=== PATIENT | male | born 1955 | race Caucasian/White ===

== ENCOUNTER 2017-03-22 12:40 | Emergency (ER) | payer BC, OTHER ==
[2017-03-22] MEDS ORDERED: predniSONE 20 MG Tab PO ONE (12:59)
--- NOTE | 2017-03-22 12:59 | EDM.PDOC ---
ED HPI GENERAL MEDICAL PROBLEM - General Chief Complaint: Bite:Animal, Insect Stated Complaint: STUNG BY A BEE Time Seen by Provider: 03/22/17 12:51 - History of Present Illness INITIAL COMMENTS - FREE TEXT/NARRATIVE: HISTORY AND PHYSICAL: History of present illness: Patient is 61-year-old white male presents status post bee sting to his left neck patient has history of significant allergies took an EpiPen and Benadryl prior to arrival is asymptomatic upon arrival. There is no shortness of breath dizziness lip swelling or other concern Review of systems: As per history of present illness and below otherwise all systems reviewed and negative. Past medical history: As per history of present illness and as reviewed below otherwise noncontributory. Surgical history: As per history of present illness and as reviewed below otherwise noncontributory. Social history: No reported history of drug or alcohol abuse. Family history: As per history of present illness and as reviewed below otherwise noncontributory. Physical exam: HEENT: Atraumatic, normocephalic, pupils reactive, negative for conjunctival pallor or scleral icterus, mucous membranes moist, throat clear, neck supple, nontender, trachea midline. Lungs: Clear to auscultation, breath sounds equal bilaterally, chest nontender. Heart: S1S2, regular, negative for clicks, rubs, or JVD. Abdomen: Soft, nondistended, nontender. Negative for masses or hepatosplenomegaly. Negative for costovertebral tenderness. Pelvis: Stable nontender. Genitourinary: Deferred. Rectal: Deferred. Extremities: Atraumatic, negative for cords or calf pain. Neurovascular unremarkable. Neuro: Awake, alert, oriented. Cranial nerves II through XII unremarkable. Cerebellum unremarkable. Motor and sensory unremarkable throughout. Exam nonfocal. Diagnostics: None Therapeutics: Prednisone 60 mg by mouth Impression: #1 observation status post insect bite #2 history of significant allergy to bees Definitive disposition and diagnosis as appropriate pending reevaluation and review of above. - Related Data Allergies Allergy/AdvReac Type Severity Reaction Status Date / Time bee sting Allergy Shortness Uncoded 03/22/17 12:49 of Breath Home Meds: Home Meds . [No Known Home Meds] 07/15/14 [History] Past Medical History - Past Health History Medical/Surgical History: Denies Medical/Surgical History Social & Family History - Tobacco Use Smoking Status *Q: Never Smoker Second Hand Smoke Exposure: Yes - Alcohol Use Days Per Week of Alcohol Use: 0 - Recreational Drug Use Recreational Drug Use: No ED ROS GENERAL - Review of Systems Review Of Systems: ROS reveals no pertinent complaints other than HPI. ED EXAM, ANIMAL BITE - Physical Exam Exam: See Below (See dictation) Course - Vital Signs Last Recorded V/S: Last Vital Signs Temp 36.5 C 03/22/17 12:50 Pulse 93 03/22/17 12:50 Resp 16 03/22/17 12:50 BP 120/67 03/22/17 12:50 Pulse Ox 95 03/22/17 12:50 Departure - Departure Time of Disposition: 12:55 Disposition: Home, Self-Care 01 Condition: Good Clinical Impression: Insect bite - Discharge Information Referrals: PCP,None [Primary Care Provider] - Additional Instructions: The following information is given to patients seen in the emergency department who are being discharged to home. This information is to outline your options for follow-up care. We provide all patients seen in our emergency department with a follow-up referral. The need for follow-up, as well as the timing and circumstances, are variable depending upon the specifics of your emergency department visit. If you don't have a primary care physician on staff, we will provide you with a referral. We always advise you to contact your personal physician following an emergency department visit to inform them of the circumstance of the visit and for follow-up with them and/or the need for any referrals to a consulting specialist. The emergency department will also refer you to a specialist when appropriate. This referral assures that you have the opportunity for followup care with a specialist. All of these measure are taken in an effort to provide you with optimal care, which includes your followup. Under all circumstances we always encourage you to contact your private physician who remains a resource for coordinating your care. When calling for followup care, please make the office aware that this follow-up is from your recent emergency room visit. If for any reason you are refused follow-up, please contact the [facility] emergency department at and asked to speak to the emergency department charge nurse. EpiPen as directed Medrol as prescribed Benadryl as directed follow up primary medical doctor 1 today's return as needed as discussed
[2017-03-22 13:15] VITALS: BP 111/56
== END 2017-03-22 13:13 | disposition home or self-care (01) ==
LOC: MW.ED 12:40
DX: S10.96XA Insect bite of unspecified part of neck, initial encounter (principal); W57.XXXA Bitten or stung by nonvenomous insect and other nonvenomous arthropods, initial encounter
CPT/HCPCS: 99282; A9270

== ENCOUNTER 2017-10-03 23:47 | Emergency (ER) | payer OTHER, BC ==
[2017-10-04] MEDS ORDERED: Ibuprofen 800 MG Tab PO ONE (00:04)
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
== END 2017-10-04 01:28 | disposition home or self-care (01) ==
LOC: MW.ED 23:47
DX: S60.011A Contusion of right thumb without damage to nail, initial encounter (principal); Z91.030 Bee allergy status; V47.5XXA Car driver injured in collision with fixed or stationary object in traffic accident, initial encounter
CPT/HCPCS: 29125; 73120; 73140; 99283; A9270

== ENCOUNTER 2019-07-31 06:34 | Day surgery (SDC) | payer BC, OTHER ==
[~2019-07-31 06:34] MED LIST: Lactated Ringers 1,000 ML IV SCH
[2019-07-31] MEDS ORDERED: Propofol 200 MG/20 ML SDV ONE (07:24)
--- NOTE | 2019-07-31 07:40 | PCM.PREANE ---
Preanesthetic Assessment - Anesthesia/Transfusion/Family Hx Anesthesia History: Prior Anesthesia Without Reaction Family History of Anesthesia Reaction: No Transfusion History: No Prior Transfusion(s) - Review of Systems General: No Symptoms Pulmonary: No Symptoms Cardiovascular: No Symptoms Gastrointestinal: No Symptoms Neurological: No Symptoms Other: Reports: None - Physical Assessment NPO Status Date: 07/30/19 Vital Signs: Last Vital Signs Temp 97.3 F 07/31/19 06:49 Pulse 67 07/31/19 06:49 Resp 16 07/31/19 06:49 BP 112/63 07/31/19 06:49 Pulse Ox 95 07/31/19 06:49 Height: 6 ft 2 in Weight: 118.388 kg ASA Class: 2 Mental Status: Alert & Oriented x3 Airway Class: Mallampati = 1 ROM/Head Extension: Full Lungs: Clear to Auscultation, Normal Respiratory Effort Cardiovascular: Regular Rate, Regular Rhythm - Allergies Allergies/Adverse Reactions: Allergies Allergy/AdvReac Type Severity Reaction Status Date / Time bee sting Allergy Anaphylactic Uncoded 07/31/19 07:01 Shock - Blood Blood Available: No - Anesthesia Plan Pre-Op Medication Ordered: None - Acknowledgements Anesthesia Type Planned: General Anesthesia Pt an Appropriate Candidate for the Planned Anesthesia: Yes Alternatives and Risks of Anesthesia Discussed w Pt/Guardian: Yes Pt/Guardian Understands and Agrees with Anesthesia Plan: Yes Additional Comments: pmh: RA vs OA, thyroid replacement, REGINALD uses CPAP 8 hr/night PreAnesthesia Questionnaire - Past Health History Medical/Surgical History: Denies Medical/Surgical History HEENT History: Reports: Other (See Below) Other HEENT History: wears glasses Cardiovascular History: Reports: None Respiratory History: Reports: Sleep Apnea Other Respiratory History: uses CPAP Gastrointestinal History: Reports: None Genitourinary History: Reports: None Musculoskeletal History: Reports: Fracture, RA Other Musculoskeletal History: hx fx rt ankle Neurological History: Reports: None Psychiatric History: Reports: None Endocrine/Metabolic History: Reports: Hyperthyroidism, Hypothyroidism, Obesity/ BMI 30+ Hematologic History: Reports: None Immunologic History: Reports: None Other 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 Dermatologic History: Reports: None - Infectious Disease History Infectious Disease History: Reports: Chicken Pox, Measles - Past Surgical History Head Surgeries/Procedures: Reports: None HEENT Surgical History: Reports: None Cardiovascular Surgical History: Reports: None Respiratory Surgical History: Reports: None GI Surgical History: Reports: None Male Surgical History: Reports: None Endocrine Surgical History: Reports: None Neurological Surgical History: Reports: None Musculoskeletal Surgical History: Reports: Arthroscopic Knee, Other (See Below) Other Musculoskeletal Surgeries/Procedures:: sx for fx rt ankle, left knee surgery x2 Oncologic Surgical History: Reports: None Dermatological Surgical History: Reports: Skin Biopsy - SUBSTANCE USE Smoking Status *Q: Never Smoker - HOME MEDS Home Medications: Home Meds Diclofenac Sodium [Voltaren 1% Gel] 1 applic TOP ASDIRECTED PRN 07/26/19 [ History] EPINEPHrine [Epipen] 1 injection SUBCUT ASDIRECTED PRN 07/26/19 [History] Levothyroxine Sodium [Levo-T] 88 mcg PO DAILY 07/26/19 [History] Meloxicam [Mobic] 7.5 mg PO BID PRN 07/26/19 [History] Naproxen Sodium [Aleve] 1 - 2 tab PO ASDIRECTED PRN 07/26/19 [History] hydrOXYzine HCL [Hydroxyzine HCl] 50 mg PO BEDTIME 07/26/19 [History] - CURRENT (IN HOUSE) MEDS Current Meds: Current Medications Lactated Ringer's (Ringers, Lactated) 1,000 mls @ 125 mls/hr IV ASDIRECTED ADELINA Last Admin: 07/31/19 06:53 Dose: 125 mls/hr Discontinued Medications Propofol (Diprivan 20 Ml) Confirm Administered Dose 400 mg .ROUTE .STK-MED ONE Stop: 07/31/19 07:25
--- NOTE | 2019-07-31 08:18 | PCM.OPNOTE ---
- General Post-Op/Procedure Note Date of Surgery/Procedure: 07/31/19 Operative Procedure(s): Colonoscopy Pre Op Diagnosis: Desire for colorectal cancer screening. Family history of colon polyps. Post-Op Diagnosis: Sigmoid diverticulosis. Anesthesia Technique: MAC (ASA II) Primary Surgeon: Lars Hancock Condition: Good Free Text/Narrative:: DICTATION 596120 CPT CODE 64817
[2019-07-31] MEDS ORDERED: Lactated Ringers 1,000 ML IV SCH (08:30)
[2019-07-31 08:31] VITALS: BP 102/54; PULSE 59
--- NOTE | 2019-07-31 09:18 | PCM.POSTAN ---
POST ANESTHESIA ASSESSMENT - MENTAL STATUS Mental Status: Alert, Oriented - VITAL SIGNS Vital Signs: Last Vital Signs Temp 97.5 F 07/31/19 08:16 Pulse 59 L 07/31/19 08:16 Resp 12 07/31/19 08:16 BP 102/54 L 07/31/19 08:16 Pulse Ox 93 L 07/31/19 08:16 - RESPIRATORY Respiratory Status: Respiratory Rate WNL, Airway Patent, O2 Saturation Stable - CARDIOVASCULAR CV Status: Pulse Rate WNL, Blood Pressure Stable - GASTROINTESTINAL GI Status: No Symptoms - POST OP HYDRATION Hydration Status: Adequate & Stable
--- NOTE | 2019-07-31 09:18 | PCM48HPAN ---
Post Anesthesia Note - EVALUATION WITHIN 48HRS OF ANESTHETIC Vital Signs in Normal Range: Yes Patient Participated in Evaluation: Yes Respiratory Function Stable: Yes Airway Patent: Yes Cardiovascular Function Stable: Yes Hydration Status Stable: Yes Pain Control Satisfactory: Yes Nausea and Vomiting Control Satisfactory: Yes Mental Status Recovered: Yes Vital Signs: Last Vital Signs Temp 97.5 F 07/31/19 08:16 Pulse 59 L 07/31/19 08:16 Resp 12 07/31/19 08:16 BP 102/54 L 07/31/19 08:16 Pulse Ox 93 L 07/31/19 08:16
--- NOTE | 2019-07-31 13:38 | OR ---
SURGEON: Lars Hancock M.D. DATE OF PROCEDURE: 07/31/2019 OPERATION PERFORMED: Colonoscopy. PRIMARY SURGEON: Lars Hancock MD. ANESTHESIA: MAC. ASA CLASSIFICATION: II. PREOPERATIVE DIAGNOSES: 1. Desire for colorectal cancer screening. 2. Family history of colon polyps. POSTOPERATIVE DIAGNOSIS: Moderate sigmoid diverticulosis. DESCRIPTION OF PROCEDURE: The patient was taken to the endoscopy room and positioned on the endoscopy table in the left lateral decubitus position. Time-out was called for appropriate identification of the patient and procedure. Monitored anesthesia care was provided. The colonoscope was inserted into the rectum and advanced with minimal difficulty to the cecum. The cecum was identified by internal landmarks and external pressure. The colonoscope was retroflexed to visualize the ascending colon from below, then straightened and slowly withdrawn. The cecum, ascending colon, hepatic flexure, transverse colon, splenic flexure, and descending colon showed no tumors, polyps, diverticula, or angiodysplastic changes. There was no evidence of inflammatory bowel disease. The sigmoid colon demonstrated moderate diverticular change. No stricture, spasm, or bleeding was noted. No polyps were encountered in the sigmoid colon. The colonoscope was withdrawn to the rectum and retroflexed to visualize the anal orifice from above. Again, no tumors or polyps were seen and there were no acute hemorrhoidal changes. The colonoscope was then straightened, the rectum aspirated, and the colonoscope removed. The patient tolerated the procedure well and was taken to recovery room in satisfactory condition. SANCHEZ / CLAUDIA /[id number]
== END 2019-07-31 09:18 | disposition home or self-care (01) ==
LOC: MW.SDS 06:34
PROVIDERS: ATTEND Surgery
DX: Z12.11 Encounter for screening for malignant neoplasm of colon (principal); K57.30 Diverticulosis of large intestine without perforation or abscess without bleeding; G47.33 Obstructive sleep apnea (adult) (pediatric); E03.9 Hypothyroidism, unspecified; M17.12 Unilateral primary osteoarthritis, left knee; M06.9 Rheumatoid arthritis, unspecified; E66.9 Obesity, unspecified; Z68.33 Body mass index [BMI] 33.0-33.9, adult; Z91.030 Bee allergy status; Z79.899 Other long term (current) drug therapy; Z83.71 Family history of colonic polyps; Z99.89 Dependence on other enabling machines and devices
CPT/HCPCS: 45378; J2704; J7120; 00812

== ENCOUNTER 2024-06-13 03:29 | Emergency (ER) | payer MEDICARE, OTHER ==
[2024-06-13 03:58] LABS: BASOPHILS ABSOLUTE AUTO 0.07 K/uL (0.00-0.20); BASOPHILS PERCENT AUTO 0.9 % (0.0-1.0); EOSINOPHILS ABSOLUTE AUTO 0.31 K/uL (0.00-0.45); EOSINOPHILS PERCENT AUTO 4.2 % (0.0-6.0); HEMATOCRIT 40.3 % (42.0-52.0); HEMOGLOBIN 13.4 g/dL (14.0-18.0); IMMATURE GRAN ABSOLUTE AUTO 0.05 K/uL (0.00-0.05); IMMATURE GRAN PERCENT AUTO 0.7 % (0.0-0.4); LYMPHOCYTES PERCENT AUTO 25.5 % (24.0-44.0); MEAN CORPUSCULAR HEMOGLOBIN 30.7 pg (28.0-32.0); MEAN CORPUSCULAR HGB CONC 33.3 g/dL (32.0-36.0); MEAN CORPUSCULAR VOLUME 92.2 fL (83.0-99.0); MEAN PLATELET VOLUME 11.1 fL (9.4-12.4); MONOCYTES ABSOLUTE AUTO 0.54 K/uL (0.00-0.80); MONOCYTES PERCENT AUTO 7.2 % (0.0-8.0); NEUTROPHILS ABSOLUTE AUTO 4.58 K/uL (1.80-7.70); NEUTROPHILS PERCENT AUTO 61.5 % (41.0-71.0); PLATELET COUNT,PLT 191 K/uL (150-400); RED BLOOD CELL COUNT 4.37 M/uL (4.52-5.90); WHITE BLOOD CELL COUNT,WBC 7.45 K/uL (3.9-11.3)
[2024-06-13 04:23] LABS: CALCIUM 8.9 mg/dL (8.5-10.1); CARBON DIOXIDE,CO2 27.3 mmol/L (21.0-32.0); EST CRCL DRUG DOSING (CG) 82.2 mL/min; POTASSIUM,K 4.3 mmol/L (3.5-5.1)
[2024-06-13 06:43] VITALS: BP 119/65; PULSE 65
== END 2024-06-13 06:56 | disposition home or self-care (01) ==
LOC: MW.ED 03:29
DX: R07.2 Precordial pain (principal); E03.9 Hypothyroidism, unspecified; E66.9 Obesity, unspecified; Z91.030 Bee allergy status; Z79.890 Hormone replacement therapy; Z79.899 Other long term (current) drug therapy; Z68.41 Body mass index [BMI] 40.0-44.9, adult
CPT/HCPCS: 36415; 71046; 71046-26; 80048; 84484; 85025; 85379; 93005; 99285

== ENCOUNTER 2024-06-29 07:44 | Day surgery (SDC) | payer MEDICARE, OTHER ==
[~2024-06-29 07:44] MED LIST changes: +Albuterol 0.083% 2.5 MG/3 ML Neb Soln NEB PRN; +HYDROmorphone 1 MG/ML Syringe IVPUSH PRN; -Lactated Ringers 1,000 ML IV SCH; +Metoclopramide 10 MG/2 ML SDV IVPUSH PRN; +Morphine 2 MG/ML SYRINGE IVPUSH PRN; +Naloxone 0.4 MG/ML SDV IVPUSH PRN; +Ondansetron 4 MG/2 ML SDV IVPUSH PRN; +Phenylephrine HCl In 0.9% NaCl 1 MG/10 ML Syringe IVPUSH PRN; +fentaNYL 50 MCG/ML SDV IVPUSH PRN
[2024-06-29] MEDS ORDERED: Lidocaine 1% 20 ML MDV ONE (07:51)
[2024-06-29] MEDS ORDERED: Bupivacaine 0.5% 10 ML SDV ONE (07:51)
[2024-06-29] MEDS ORDERED: fentaNYL 100 MCG/2 ML SDV ONE (08:03)
[2024-06-29] MEDS ORDERED: Propofol 200 MG/20 ML SDV ONE (08:03)
[2024-06-29] MEDS ORDERED: dexmedeTOMIDine HCl 200 MCG/2 ML SDV ONE (08:04)
[2024-06-29] MEDS ORDERED: Water For Injection, Sterile 20 ML ONE (08:04)
[2024-06-29] MEDS: Scopalamine 1mg/3day Transdermal Patch TOP ONE (08:05)
[2024-06-29] MEDS ORDERED: propofoL 500 MG/50 ML 50 ML ONE ×2 (08:06→09:25)
[2024-06-29] MEDS: Lactated Ringers 1,000 ML IV SCH (08:25)
[2024-06-29] MEDS ORDERED: ceFAZolin 1 GM Vial ONE (09:12)
[2024-06-29] MEDS ORDERED: ceFAZolin 2 GM Vial ONE (09:12)
[2024-06-29] MEDS ORDERED: Dexamethasone 4 MG/ML 5 ML MDV ONE (09:17)
[2024-06-29] MEDS ORDERED: Ondansetron 4 MG/2 ML SDV ONE (09:17)
[2024-06-29] MEDS ORDERED: Ketorolac 30 MG/ML SDV ONE (09:36)
[2024-06-29 11:46] VITALS: BP 117/69; PULSE 69
== END 2024-06-29 11:20 | disposition home or self-care (01) ==
LOC: MW.SDS 07:44
PROVIDERS: ATTEND Surgery
DX: C61 Malignant neoplasm of prostate (principal); E78.00 Pure hypercholesterolemia, unspecified; E03.9 Hypothyroidism, unspecified; Z79.890 Hormone replacement therapy; Z79.899 Other long term (current) drug therapy
CPT/HCPCS: 00532; 36561; 71045; 71045-26; 76000; 76000-26; A9270-GY; C1788; J0665; J0690; J1100; J1642; J1885; J2405; J2704; J3010; J3490; J7120